=== PATIENT | female | born 1980 | race Caucasian/White ===

== ENCOUNTER 2022-03-25 13:07 | Emergency (ER) | payer OTHER, SELFPAY ==
[2022-03-25 13:10] VITALS: BP 223/17; PULSE 100; RESP 16; TEMP 36.4; O2SAT 98; BMI 61.3
--- NOTE | 2022-03-25 13:50 | RAD_ITS ---
STUDY: X-RAY - LEFT FEMUR REASON FOR STUDY: Female, 41 years old. Injury TECHNIQUE: 4 view(s) of the femur. COMPARISON: None. FINDINGS: Normal visualized femur. Normal visualized soft tissue structure. RAD/Femur Min 2 Views IMPRESSION: Normal x-ray examination of the femur. Electronically Signed: Paul Allen MD at 14:30 EDT ,
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
[2022-03-25] MEDS: Ibuprofen 600 MG Tablet PO (14:00)
[2022-03-25 15:53] VITALS: BP 160/91; PULSE 64; O2SAT 98
== END 2022-03-25 16:10 | disposition home or self-care (01) ==
PROVIDERS: Emergency Provider Emergency Medicine; PCP Family Medicine; Visit Provider Emergency Medicine
DX: S40.012A Contusion of left shoulder, initial encounter (principal); E66.01 Morbid (severe) obesity due to excess calories; S70.12XA Contusion of left thigh, initial encounter; V40.7XXA Person on outside of car injured in collision with pedestrian or animal in traffic accident, initial encounter
CPT/HCPCS: 71046; 72170; 73030; 73552; 99283

== ENCOUNTER 2024-03-11 15:35 | Emergency (ER) | payer BC, SELFPAY ==
[2024-03-11 15:40] VITALS: BP 132/83; PULSE 100; RESP 18; TEMP 36.2; O2SAT 97; BMI 61.0
--- NOTE | 2024-03-11 15:43 | EKG12_ITS ---
Test Reason : Blood Pressure : / mmHG Vent. Rate : 079 BPM Atrial Rate : 079 BPM P-R Int : 150 ms QRS Dur : 096 ms QT Int : 382 ms P-R-T Axes : 064 020 042 degrees QTc Int : 438 ms Normal sinus rhythm with sinus arrhythmia Normal ECG Confirmed by James Dowell ([id number]), editor in chief AL MAHMOOD ([id number]) on 03/14/2024 2:20:00 PM Referred By: Confirmed By:James Dowell
--- NOTE | 2024-03-11 16:20 | RAD_ITS ---
INDICATION: Shortness of breath EXAMINATION/TECHNIQUE: X-RAY - XR Chest 1 View COMPARISON: No relevant prior comparison study available FINDINGS: LINES/DEVICES: None. LUNGS: No consolidation, edema or effusion. No pneumothorax. MEDIASTINUM AND CARDIOVASCULAR STRUCTURES: Cardiac silhouette not enlarged. Central airways and mediastinal contour are unremarkable. BONES AND SOFT TISSUES: Unremarkable. RAD/Chest 1 View (Portable) IMPRESSION: No radiographic evidence of acute cardiopulmonary disease. Electronically Signed: Sandy Sorenson MD at 16:44 EDT ,
--- NOTE | 2024-03-11 17:04 | EDS_ITS ---
HPI <RAGHAV Peralta - Last Filed: 03/11/24 18:39> History of Present Illness Chief Complaint: Dizziness Narrative Narrative: 43-year-old female with past medical history of hypertension, hypothyroidism states she went to work around 9 AM at [employer] in the [place] [employer]. Shortly after that she felt lightheaded off and on throughout the day. She generally did not feel well and was sweating. She took a break around 2 PM and sat in her car and felt mildly short of breath. She states her mouth and left hand started to feel almost numb. She went into the pharmacy to have her vital signs checked her blood pressure was 140s/70s but her heart rate was 150. She denies feeling chest pain or palpitations. She has no known cardiac history or arrhythmias. She is on lisinopril and thyroid medication with no recent dose changes. She recently quit smoking. She has no history of DVT/PE or risk factors. PFS <RAGHAV Peralta - Last Filed: 03/11/24 18:39> [facility] Medical History (Updated 03/11/24 @ 18:28 by Will Patel MD) Hypertension Mastitis Seizures Thyroid disease Home Medications clonidine HCl 0.1 mg tablet 0.1 mg PO DAILY 04/13/23 [History Last Taken Unknown] levothyroxine 50 mcg tablet 50 mcg PO DAILY 04/13/23 [History Last Taken Unknown] lisinopril 5 mg tablet 5 mg PO DAILY 04/13/23 [History Last Taken Unknown] naproxen sodium 220 mg capsule (Aleve) 440 mg PO BID PRN 04/13/23 [History Last Taken Unknown] ciprofloxacin HCl 500 mg tablet 500 mg PO BID #14 tabs 06/27/23 [Rx Last Taken Unknown] Allergy/AdvReac Type Severity Reaction Status Date / Time Penicillins Allergy Hives Verified 03/11/24 15:39 Surgical History Hx of section Hx of tonsillectomy Social History (Updated 04/13/23 @ 17:34 by Meera Bloom) Smoking Status: Current some day smoker tobacco type: cigarettes alcohol intake: never ROS <RAGHAV Peralta - Last Filed: 03/11/24 18:39> ROS ED ROS Narrative Constitutional: Negative for fever, chills, malaise. CVS: Negative for palpitations, chest pain, syncope. Respiratory: Positive for shortness of breath. No cough, orthopnea. GI: Negative for abdominal pain, nausea, vomiting, melena, hematochezia. Neuro: Negative for headache. EXAM <RAGHAV Peralta - Last Filed: 03/11/24 18:39> Physical Exam Narrative Exam Narrative: CONST: Patient sitting in no acute distress. EYES: Normal inspection. NECK: Normal inspection. RESP: No respiratory distress, CTAB. CVS: Regular rate and rhythm, no murmur, no gallop. ABD: Soft and nontender, no guarding or rebound, nondistended. SKIN: Color normal, no rash, warm, dry, intact. EXTREMITIES: Normal appearance, no pedal edema. NEURO: Alert and answering questions appropriately. PSYCH: Normal affect. Const Vital Signs: 03/11/24 15:40 03/11/24 17:08 03/11/24 17:13 Temperature 97.2 F L Temperature Source Temporal Pulse Rate 100 Respiratory Rate 18 Respiratory Effort Normal Non-Labored Respiratory Pattern Normal Blood Pressure 132/83 H Blood Pressure Mean 99 Pulse Ox 97 Oxygen Delivery Method Room Air Room Air 03/11/24 17:20 03/11/24 18:32 Temperature 97.3 F L Temperature Source Pulse Rate 71 81 Respiratory Rate 16 16 Respiratory Effort Respiratory Pattern Blood Pressure 117/61 110/71 Blood Pressure Mean 79 84 Pulse Ox 100 100 Oxygen Delivery Method Room Air <Will Patel MD - Last Filed: 03/11/24 23:24> Physical Exam Const Vital Signs: 03/11/24 15:40 03/11/24 17:08 03/11/24 17:13 Temperature 97.2 F L Temperature Source Temporal Pulse Rate 100 Respiratory Rate 18 Respiratory Effort Normal Non-Labored Respiratory Pattern Normal Blood Pressure 132/83 H Blood Pressure Mean 99 Pulse Ox 97 Oxygen Delivery Method Room Air Room Air 03/11/24 17:20 03/11/24 18:32 Temperature 97.3 F L Temperature Source Pulse Rate 71 81 Respiratory Rate 16 16 Respiratory Effort Respiratory Pattern Blood Pressure 117/61 110/71 Blood Pressure Mean 79 84 Pulse Ox 100 100 Oxygen Delivery Method Room Air MDM <RAGHAV Peralta - Last Filed: 03/11/24 18:39> MDM MDM Narrative Medical decision making narrative: Patient felt lightheaded with transient shortness of breath and a coworker noted her heart rate was 150. She is awake alert in no distress. Vital signs are stable. Initially her heart rate was 108 sinus rhythm. During my exam she is around 70 with no murmurs. Lungs are clear. Exam is benign. CBC, BMP only notable for creatinine of 1.24 which is not significant. Troponin and TSH are normal. She has no risk factors for PE/DVT and no chest pain or hypoxia so I do not suspect this as an etiology. CXR shows no acute process. I recommended patient follow-up with her primary care doctor. She can log her vital signs once daily and may need outpatient Holter monitor. Return precautions discussed. She was discharged in stable condition. Lab Data Attestation: I reviewed the patient's lab results. Labs: Laboratory Results - last 24 hr 03/11/24 17:10 WBC 11.0 RBC 4.56 Hgb 12.3 Hct 39.6 MCV 86.8 MCH 27.0 MCHC 31.1 L RDW Std Deviation 46.2 H RDW Coeff of Alexus 14.7 H Plt Count 366 MPV 9.4 Immature Gran % (Auto) 0.600 Neut % (Auto) 73.8 H Lymph % (Auto) 18.4 L [place] % (Auto) 6.1 Eos % (Auto) 0.6 Baso % (Auto) 0.5 Absolute Neuts (auto) 8.1 H Absolute Lymphs (auto) 2.02 Nucleated RBC % 0 PT 13.7 INR 1.1 APTT 27.1 Sodium 138 Potassium 4.4 Chloride 105 Carbon Dioxide 25.0 Anion Gap 8 BUN 18 Creatinine 1.24 H Estim Creat Clear Calc 92.07 Est GFR (MDRD) Af Amer 60 Est GFR (MDRD) Non-Af 50 L BUN/Creatinine Ratio 14.5 Glucose 107 H Calcium 9.1 Troponin I High Sens 3 TSH 2.66 Radiography Diagnostic Testing: Clinical Impression(s) from Imaging Studies Chest X-Ray 03/11/24 16:20 IMPRESSION: No radiographic evidence of acute cardiopulmonary disease. Electronically Signed: Sandy Sorenson MD at 16:44 EDT , ED attending interpretation of 1-view chest x-ray shows normal heart size, no acute infiltrate, edema, or effusion. EKG Initial EKG: Attestation: I personally reviewed and interpreted this EKG as follows: Interpretation: Sinus Rhythm and No Acute Injury Pattern Comments: Normal sinus rhythm with sinus arrhythmia at 79 bpm, normal intervals, no acute ischemic changes <Will Patel MD - Last Filed: 03/11/24 23:24> [facility] Narrative Medical decision making narrative: Patient felt lightheaded with transient shortness of breath and a coworker noted her heart rate was 150. She is awake alert in no distress. Vital signs are stable. Initially her heart rate was 108 sinus rhythm. During my exam she is around 70 with no murmurs. Lungs are clear. Exam is benign. CBC, BMP only notable for creatinine of 1.24 which is not significant. Troponin and TSH are normal. She has no risk factors for PE/DVT and no chest pain or hypoxia so I do not suspect this as an etiology. CXR shows no acute process. Chest x-ray interpreted by ED physician independently. Radiology report reviewed. I recommended patient follow-up with her primary care doctor. She can log her vital signs once daily and may need outpatient Holter monitor. Return precautions discussed. She was discharged in stable condition. Dr. Patel: I have personally performed a face to face assessment of the patient and have reviewed the JACLYN Note. I performed a substantive portion of the visit including all aspects of the following. My lee findings include: History is lightheadedness all day. Shortness of breath, reported heart rate near 140 bpm Exam is afebrile. Vital signs noted. Regular rate and rhythm. Lungs clear to auscultation bilaterally. Abdomen soft and nontender. Neurological examination nonfocal. Medical Decision Making: radiation monitor. Check labs. Check TSH. Chest x-ray interpreted by myself independently shows no evidence of an acute process, no pneumonia or pneumothorax. I reviewed the radiology report which confirms my independent interpretation. At this point in time, I feel that she can be discharged to follow-up with a primary care provider. Return instructions reviewed. Disposition is discharged home in stable condition. Other additions or changes: [None] Lab Data Labs: Laboratory Results - last 24 hr 03/11/24 17:10 WBC 11.0 RBC 4.56 Hgb 12.3 Hct 39.6 MCV 86.8 MCH 27.0 MCHC 31.1 L RDW Std Deviation 46.2 H RDW Coeff of Alexus 14.7 H Plt Count 366 MPV 9.4 Immature Gran % (Auto) 0.600 Neut % (Auto) 73.8 H Lymph % (Auto) 18.4 L [place] % (Auto) 6.1 Eos % (Auto) 0.6 Baso % (Auto) 0.5 Absolute Neuts (auto) 8.1 H Absolute Lymphs (auto) 2.02 Nucleated RBC % 0 PT 13.7 INR 1.1 APTT 27.1 Sodium 138 Potassium 4.4 Chloride 105 Carbon Dioxide 25.0 Anion Gap 8 BUN 18 Creatinine 1.24 H Estim Creat Clear Calc 92.07 Est GFR (MDRD) Af Amer 60 Est GFR (MDRD) Non-Af 50 L BUN/Creatinine Ratio 14.5 Glucose 107 H Calcium 9.1 Troponin I High Sens 3 TSH 2.66 Radiography Chest X-Ray - ED: Read by ED Physician Diagnostic Testing: Clinical Impression(s) from Imaging Studies Chest X-Ray 03/11/24 16:20 IMPRESSION: No radiographic evidence of acute cardiopulmonary disease. Electronically Signed: Sandy Sorenson MD at 16:44 EDT Reading Location ID and State: [facility] / [place] Tel , Service support , Discharge Plan Triage Chief Complaint: Dizziness ED Midlevel Provider: Jacqueline Freed ED Provider: Will Patel Dx/Rx/DC Orders Clinical Impression: Shortness of breath, Palpitations, Lightheadedness Instructions: ED Dyspnea, ED Palpitations, ED Near-Fainting, Uncertain Cause Prescriptions: No Action lisinopril 5 mg tablet 5 mg PO DAILY levothyroxine 50 mcg tablet 50 mcg PO DAILY clonidine HCl 0.1 mg tablet 0.1 mg PO DAILY naproxen sodium [Aleve] 220 mg capsule 440 mg PO BID PRN ciprofloxacin HCl 500 mg tablet 500 mg PO BID Qty: 14 0RF Primary Care Provider: Holden Bryant Referrals: Chantal Hand, [Non-Staff] - 3-5 Days if not improving Activity Restrictions/Additional Instructions: Stop smoking. You have a normal heart rate here today. Follow-up with your primary care provider early next week. Return with new or worsening symptoms. Disposition Disposition: Home, Self Care Discharge Date/Time: 03/11/24 18:37
[2024-03-11 17:20] VITALS: BP 117/61; PULSE 71; RESP 16; O2SAT 100
[2024-03-11 17:29] LABS: Absolute Lymphocyte Count 2.02 X10^3/uL (0.83-4.51); Absolute Neutrophil Count 8.1 X10^3/uL (2.0-7.7); Basophil# 0.05 X10^3/uL; Basophil% 0.5 % (0-1); Eosinophil# 0.07 X10^3/uL; Eosinophils% 0.6 % (0-5); Hematocrit 39.6 % (37-47); Hemoglobin 12.3 g/dL (12.0-15.0); Lymphocyte # 2.02 X10^3/ul (0.83-4.51); Lymphocyte % 18.4 % (19-41); Mean Corp Hgb Conc 31.1 g/dL (32-36); Mean Corpuscular Volume 86.8 fL (81-99); Mean Platelet Vol. 9.4 fl (6.2-12.0); Monocyte# 0.67 X10^3/uL; Monocyte% 6.1 % (0-10); NRBC Flagged by Analyzer 0 % (0-5); Neutrophil # 8.11 X10^3/uL (2.7-7.7); Neutrophil % 73.8 % (47-70); Platelet Count 366 K/mm3 (150-450); RBC Distribution Width CV 14.7 % (11.6-14.6); RBC Distribution Width SD 46.2 fl (35.1-43.9); Red Blood Count 4.56 M/mm3 (4.2-5.4)
[2024-03-11 17:37] LABS: International Normalized Ratio 1.1; Prothrombin Time (Protime)PT. 13.7 SECONDS (11.7-14.9)
[2024-03-11 17:38] LABS: Partial Thromboplast Time 27.1 Seconds (24.1-36.2)
[2024-03-11 17:51] LABS: Anion Gap 8 (5-15); BUN 18 mg/dL (7-18); BUN/Creat Ratio 14.5 RATIO (10-20); Calcium,Total 9.1 mg/dL (8.5-10.1); Chloride 105 mmol/L (98-107); Creatinine, Serum 1.24 mg/dL (0.55-1.02); EST Glomerular Filtration Rate 50 mL/min (>60); Est Glom Filt Rate - Afr Amer 60 mL/min (>60); Estimated Creatinine Clearance 92.07 ml/min; Glucose 107 mg/dL (74-106); Potassium 4.4 mmol/L (3.5-5.1); Sodium Level 138 mmol/L (136-145); Thyroid Stim Hormone (TSH) 2.66 uIU/mL (0.358-3.74); Troponin-I HS 3 pg/mL (3.0-54.0)
[2024-03-11 18:32] VITALS: BP 110/71; PULSE 81; RESP 16; TEMP 36.3; O2SAT 100
== END 2024-03-11 18:37 | disposition home or self-care (01) ==
LOC: ED 18:33
PROVIDERS: Emergency Provider Emergency Medicine; Visit Provider Emergency Medicine
DX: R06.02 Shortness of breath (principal); R00.2 Palpitations; R42 Dizziness and giddiness; F17.210 Nicotine dependence, cigarettes, uncomplicated
CPT/HCPCS: 71045; 80048; 84443; 84484; 85025; 85610; 85730; 93005; 99284; A4216

== ENCOUNTER → 2024-09-09 | Outpatient (CLI) | payer BC, SELFPAY ==
[2024-09-09 16:44] LABS: Absolute Lymphocyte Count 2.24 X10^3/uL (0.83-4.51); Basophil# 0.04 X10^3/uL; Basophil% 0.5 % (0-1); Eosinophil# 0.16 X10^3/uL; Hemoglobin 12.1 g/dL (12.0-15.0); Lymphocyte # 2.24 X10^3/ul (0.83-4.51); Lymphocyte % 28.2 % (19-41); Mean Corp Hgb Conc 31.8 g/dL (32-36); Mean Corpuscular Hgb 27.6 pg (27.0-32.0); Mean Corpuscular Volume 86.8 fL (81-99); Mean Platelet Vol. 9.2 fl (6.2-12.0); Monocyte# 0.43 X10^3/uL; Monocyte% 5.4 % (0-10); NRBC Flagged by Analyzer 0 % (0-5); Neutrophil # 5.04 X10^3/uL (2.7-7.7); Neutrophil % 63.5 % (47-70); Platelet Count 369 K/mm3 (150-450); RBC Distribution Width CV 15.1 % (11.6-14.6); RBC Distribution Width SD 48.4 fl (35.1-43.9); Red Blood Count 4.38 M/mm3 (4.2-5.4); White Blood Count 7.9 K/mm3 (4.4-11.0)
[2024-09-09 16:59] LABS: Erythrocyte Sedimentation Rate 33 mm/hr (0-30)
[2024-09-09 17:04] LABS: Uric Acid 6.5 mg/dL (2.6-6.0)
== END | disposition home or self-care (01) ==
LOC: LAB 16:29
PROVIDERS: Referring Provider Physician Assistant; Visit Provider Physician Assistant
DX: M25.531 Pain in right wrist (principal); R20.2 Paresthesia of skin; M10.9 Gout, unspecified
CPT/HCPCS: 36415; 84550; 85025; 85652; 86140

== ENCOUNTER → 2024-09-23 | Outpatient (CLI) | payer BC, SELFPAY ==
--- NOTE | 2024-09-23 19:19 | CT_ITS ---
EXAM: CT RIGHT UPPER EXTREMITY WITHOUT INTRAVENOUS CONTRAST CLINICAL INDICATION: RT WRIST PAIN TECHNIQUE: Helically acquired images were obtained of the right upper extremity without intravenous contrast. 2-D reformats were performed by the technologist. This CT exam was performed using one or more of the following dose reduction techniques: automated exposure control, adjustment of the mA and/or kV according to patient size, and/or use of iterative reconstruction technique. COMPARISON: No relevant prior studies available. FINDINGS: BONES/JOINTS: No significant abnormality. No sclerotic or destructive changes. No acute fracture or dislocation. SOFT TISSUES: Soft tissue calcifications along the dorsum of the wrist are identified, nonspecific, perhaps the sequela of chronic post traumatic change such as chronic hematoma, or possibly vascular malformation or calcifications within a synovial cyst. No soft tissue gas. VASCULATURE: Vascular calcifications. CT/Extremity Upper without Contra IMPRESSION: 1. No acute fracture or dislocation. 2. Soft tissue calcifications along the dorsum of the wrist are identified, nonspecific, perhaps the sequela of chronic post traumatic change such as chronic hematoma, or possibly vascular malformation or calcifications within a synovial cyst. RECOMMENDATIONS: Correlation with radiographic examination and consider MRI. Electronically Signed: Maurilio Tineo DO at 12:07 EST ,
== END | disposition home or self-care (01) ==
LOC: CT 19:07
PROVIDERS: Visit Provider Physician Assistant
DX: M25.531 Pain in right wrist (principal); E66.9 Obesity, unspecified; M10.9 Gout, unspecified
CPT/HCPCS: 73200

== ENCOUNTER → 2025-01-12 | Outpatient (CLI) | payer BC, SELFPAY | END | disposition home or self-care (01) | LOC: LABSPEC 07:18 | PROVIDERS: Visit Provider Nurse Practitioner | DX: R82.90 Unspecified abnormal findings in urine (principal) | CPT/HCPCS: 87077; 87086; 87088; 87186 ==